=== PATIENT | male | born 1945 | race Caucasian/White ===

== ENCOUNTER → 2017-10-13 | Day surgery (SDC) | payer OTHER, MEDICARE ==
[~2017-10-13] VITALS: Ht 175.3 cm; Wt 88.5 kg
--- NOTE | 2017-10-13 13:05 | Operative Report ---
Operative/Inv Procedure Report Surgery Date: 10/13/17 Name of Procedure: Left nipple and breast biopsy Pre-Operative Diagnosis: Left breast mass and nipple firmness Post-Operative Diagnosis: Same Estimated Blood Loss: scant Surgeon/Community Outreach Advocate: Alia Hubbard MD Anesthesia: local monitored anesthesi Specimens: Left nipple biopsy 5:00 suture carpenter nipple and breast biopsy 3:00 Operative/Procedure Note Note: Patient presents with fullness and tenderness in the left breast which has persisted for several months. Exam progressed to focal thickening at the nipple base and in the lateral nipple areolar complex. Is brought to the operating room to 1418 for nipple biopsy with underlying breast tissue biopsy as well. 2 g of Ancef was given and left breast was prepped and draped in a sterile fashion using ChloraPrep. Local anesthesia 1% lidocaine mixed half percent Marcaine was given. Full-thickness skin biopsy was performed at 5:00 in the left nipple areolar complex. Underlying breast tissue was removed as well. A suture was placed in the central portion of the skin. Breast tissue was then biopsied in the 3:00 area where the fullness is palpable. This was then incisional biopsy of fullness and is unmarked. Hemostasis was achieved using electrocautery. Deep tissue was proximal made using interrupted Vicryl sutures and the skin was closed using running Biosyn subcuticular stitch. Dermabond was applied and patient transferred to the recovery room in satisfactory condition having tolerated procedure well.
== END ==
LOC: STS 03:01
DX: N60.32 Fibrosclerosis of left breast (principal); L40.9 Psoriasis, unspecified; Z87.891 Personal history of nicotine dependence; E11.9 Type 2 diabetes mellitus without complications; Z79.84 Long term (current) use of oral hypoglycemic drugs; Z85.46 Personal history of malignant neoplasm of prostate
CPT/HCPCS: J0690; J1885; J2250